=== PATIENT | female | born 1955 | race Caucasian/White ===

== ENCOUNTER 2021-11-04 16:56 | Emergency (ER) | payer BC, OTHER ==
[2021-11-04] MEDS ORDERED: Lidocaine 2% with EPINEPHrine 1:100,000 20 ML MDV INJECT ONE (17:16)
== END 2021-11-04 18:02 | disposition home or self-care (01) ==
LOC: VM.ED 16:56
DX: S81.811A Laceration without foreign body, right lower leg, initial encounter (principal); E78.00 Pure hypercholesterolemia, unspecified; I10 Essential (primary) hypertension; K21.9 Gastro-esophageal reflux disease without esophagitis; Z88.5 Allergy status to narcotic agent; Z88.8 Allergy status to other drugs, medicaments and biological substances; Z79.899 Other long term (current) drug therapy; W20.8XXA Other cause of strike by thrown, projected or falling object, initial encounter
CPT/HCPCS: 12001; 12002; 99282; 99283

== ENCOUNTER 2021-12-02 07:56 | Day surgery (SDC) | payer BC ==
[~2021-12-02 07:56] MED LIST: Lactated Ringers 1,000 ML IV SCH; Midazolam 1 MG/ML 2 ML SDV IVPUSH PRN; Sodium Chloride 0.9% 10 ML Syringe FLUSH PRN; fentaNYL 100 MCG/2 ML SDV IVPUSH PRN
[2021-12-02] MEDS ORDERED: fentaNYL 100 MCG/2 ML SDV ONE (10:11)
[2021-12-02] MEDS ORDERED: Midazolam 1 MG/ML 2 ML SDV ONE ×4 (10:11→10:46)
== END 2021-12-02 12:55 | disposition home or self-care (01) ==
LOC: VM.SDS 07:56
PROVIDERS: ATTEND Family Medicine
DX: Z12.11 Encounter for screening for malignant neoplasm of colon (principal); D12.0 Benign neoplasm of cecum; K57.30 Diverticulosis of large intestine without perforation or abscess without bleeding; E87.6 Hypokalemia; I10 Essential (primary) hypertension; E78.5 Hyperlipidemia, unspecified; K21.9 Gastro-esophageal reflux disease without esophagitis; M81.0 Age-related osteoporosis without current pathological fracture; Z98.890 Other specified postprocedural states; Z87.19 Personal history of other diseases of the digestive system; Z79.899 Other long term (current) drug therapy; Z88.8 Allergy status to other drugs, medicaments and biological substances; Z87.891 Personal history of nicotine dependence
CPT/HCPCS: 45380; 45385; J2250; J3010; J7120